=== PATIENT | female | born 1975 | race Caucasian/White ===

== ENCOUNTER → 2017-07-19 | Outpatient (CLI) | payer BC | LOC: MC.RAD 16:37 | DX: Z12.31 Encounter for screening mammogram for malignant neoplasm of breast (principal) ==

== ENCOUNTER → 2018-10-20 | Outpatient (CLI) | payer BC | LOC: MC.RAD 07:15 | DX: Z12.31 Encounter for screening mammogram for malignant neoplasm of breast (principal); N63.11 Unspecified lump in the right breast, upper outer quadrant ==

== ENCOUNTER → 2018-10-24 | Outpatient (CLI) | payer BC | LOC: MC.RAD 07:23 | DX: N63.11 Unspecified lump in the right breast, upper outer quadrant (principal) ==

== ENCOUNTER → 2019-10-22 | Outpatient (CLI) | payer BC | LOC: MC.RAD 15:12 | DX: Z12.31 Encounter for screening mammogram for malignant neoplasm of breast (principal) ==

== ENCOUNTER → 2020-10-24 | Outpatient (CLI) | payer BC | LOC: MC.RAD 08:45 | DX: Z12.31 Encounter for screening mammogram for malignant neoplasm of breast (principal); N64.89 Other specified disorders of breast ==

== ENCOUNTER → 2020-10-31 | Outpatient (CLI) | payer BC | LOC: MC.RAD | DX: N63.20 Unspecified lump in the left breast, unspecified quadrant (principal); N64.89 Other specified disorders of breast ==

== ENCOUNTER → 2021-05-11 | Outpatient (CLI) | payer BC | LOC: MC.RAD 08:00 | DX: R92.8 Other abnormal and inconclusive findings on diagnostic imaging of breast (principal) ==

== ENCOUNTER → 2021-07-27 | Outpatient (CLI) | payer BC | LOC: COL.RAD 07:30 | DX: M51.17 Intervertebral disc disorders with radiculopathy, lumbosacral region (principal) ==

== ENCOUNTER → 2021-08-13 | Outpatient (CLI) | payer BC ==
[~2021-08-13] VITALS: Ht 167.6 cm; Wt 59.1 kg
[~2021-08-13] MED LIST: EFFEXOR 75M75 MG/TAB PO; FLEXERIL 1010 MG/TAB PO; SYNTHROID0.075 MG/T PO; VALTREX 50500 MG/TAB PO
[2021-08-13 09:00] VITALS: BP 125/79; PULSE 68; TEMP 98
[2021-08-13 10:17] VITALS: BP 135/79; PULSE 100
== END ==
LOC: COL.RAD 08:55
DX: M54.17 Radiculopathy, lumbosacral region (principal)
CPT/HCPCS: J3301

== ENCOUNTER → 2022-03-22 | Outpatient (CLI) | payer BC | LOC: COL.RAD 12:27 | DX: E06.3 Autoimmune thyroiditis (principal) ==

== ENCOUNTER → 2022-04-22 | Outpatient (CLI) | payer BC | LOC: MC.RAD 10:09 | DX: Z12.31 Encounter for screening mammogram for malignant neoplasm of breast (principal) ==